=== PATIENT | female | born 1960 | race Caucasian/White ===

== ENCOUNTER 2021-12-19 12:43 | Outpatient (CLI) | payer BC, SELFPAY ==
--- OUTSIDE RECORDS SUMMARY | 2021-11-15 09:32 | XMS_ITS | Continuity of Care Document ---
:1960 Author Care Team Providers Name Role Phone LEI Rodriguez Attending Physician LEI Rodriguez Primary Care Physician Health Concerns Concerns Review chart for current health concerns Allergies, Adverse Reactions, Alerts Allergen Type Severity Reaction Last Updated Verified Status Nickel Allergy Unknown RASH October 16, Yes Active 2021 Social History Smoking Status Status Start Date End Date Date of Observat ion Never smoked tobacco September 26 9:20am (finding) Observation Status Observation Response Date of Response October 16, 2021 8:56a m Never smoker October 16, 2021 8:56a m Employed October 16, 2021 8:56a m Additional Data Assigned Sex Female Problems Active Problems Medical Problem Onset Date Status Benign hypertension April 01, 2012 Active Hyperlipidemia Active SVT (supraventricular tachycardia) Activ e Colon polyp Active COVID-2021 Active Medications Medication Status Dose Units Route Directions Qty Days Start End Ins tructions Date Date Aspirin Active 81 MG PO Daily (Low-Dose Aspirin) 81 Mg TAB Atorvastatin Active 10 MG PO Bedtime September for Calcium cholesterol 2021 8:55am Metoprolol Active 25 MG PO Daily September for SVT Tartrate 2021 8:55am Multiple Active 1 EA PO Daily Vitamins W/ Minerals (Centrum Silver) TAB Atenolol Disconti 25 MG PO Daily December 9:20am 8:58am Atenolol Disconti 25 MG PO Daily December 4:42pm 8:58am Atenolol Disconti 1 TABLET PO Daily December 4:00pm 8:03am Atenolol Disconti 25 MG PO Daily November nued 2013 8:25am 8:51am Atenolol Disconti 25 MG PO Daily September nued 2012 2:35pm 9:12am Atenolol Disconti 25 MG PO Daily October nued 2012 8:33am 8:25am Atenolol Disconti 25 MG PO Daily October 8:04am Atenolol Disconti 25 MG PO Daily July nued 2012 11:25am 2:35pm Atenolol Disconti 25 MG PO Daily July nued r 2011 9:20am 11:25a m Atorvastatin Disconti 10 MG PO Bedtime September Calcium nued 2021 4:00pm 8:55am Atorvastatin Disconti 10 MG PO Bedtime September Calcium nued , 2020 8:03am 4:00pm Atorvastatin Disconti 10 MG PO Bedtime August Calcium nued , 2020 11:26am 8:03am Atorvastatin Disconti 10 MG PO Bedtime August Calcium nued , 2019 8:32am 11:26a m Atorvastatin Disconti 10 MG PO Bedtime October Calcium nued 2017 8:33am 8:32am Atorvastatin Disconti 10 MG PO Bedtime May Calcium nued , 2019 9:18am 8:32am Atorvastatin Disconti 10 MG PO Bedtime February Calcium nued , 2017, 8:29am 2019 9:18am Atorvastatin Disconti 10 MG PO Bedtime December Calcium nued , 2016 3:47pm 8:33am Azithromycin Disconti 250-5 MG PO Daily 30 May Octobe 5 00 mg x 1 nued , day then 250 2017, mg daily x 4 11:57am 2018 days 8:05am Ciprofloxacin Disconti 500 MG PO Twice A Day 05 January Au ronan Hcl nued 2015 4:45pm 8:58am Metoprolol Disconti 25 MG PO Daily September Tartrate nued , 2021 4:00pm 8:55am Metoprolol Disconti 25 MG PO Daily September Tartrate nued , 2020 8:03am 4:00pm Metoprolol Disconti 25 MG PO Daily August Tartrate nued 2020 11:26am 8:03am Metoprolol Disconti 25 MG PO Daily November Tartrate nued , 2019 1:55pm 11:26a m Metoprolol Disconti 25 MG PO Daily August Tartrate nued 2019 12:45pm 1:55pm Metoprolol Disconti 25 MG PO Daily August Tartrate nued 2019 8:32am 12:45p m Metoprolol Disconti 25 MG PO Daily February Tartrate nued 2017 11:20am 8:32am Metoprolol Disconti 25 MG PO Daily May Tartrate nued 2019 9:18am 8:32am Metoprolol Disconti 25 MG PO Daily February Tartrate nued 2017, 8:29am 2019 9:18am Metoprolol Disconti 25 MG PO Daily December Tartrate nued , r 2016 8:33am 11:20a m Metoprolol Disconti 25 MG PO Daily Decemberr Tartrate nued , y 2016 8:58am 11:05a m Prednisone Disconti 40 MG PO Daily 10 29 May Octobe nu, r 2017, 11:57am 2017 8:05am Tetanus-Dipht Disconti 0.5 ML IM Once December heria Toxoids nued , (Td (Tenivac) 2016 2016 1 Ml INJ 8:22am 9:20am Immunizations Immunization Event Date Not Given Dose Equipment Service Associate Lot Vac cine Reason Number Number Informatio n Statement (VIS) Deta il Influenza February 222011 Influenza February 232016 Tetanus/Diptheri December 23 MASS BIOLO [id number] a 2016 Tdap September 22 (adolescent/adul 2007 t) Procedures Procedure Date Performed Status ASSAY THYROID STIM HORMONE October 16, 2021 completed LIPID PANEL October 16, 2021 completed COMPREHEN METABOLIC PANEL October 16, 2021 completed Relevant Diagnostic Tests and/or Laboratory Data Laboratory Results Test Date/Time Result Interpretation Reference Result Comment Performing Site Range Random October 16, 87 60-115 [facility] Glucose 2021 [address] [facility] 8:32am [place] [address] Blood Urea October 16, 17 7-30 [facility] Nitrogen 2021 [address] [facility] 8:32am [place] [address] Creatinine October 16, 0.6 0.5-1.5 [facility] 2021 [address] [facility] 8:32am [place] [address] Estimated October 16, Patient [facility] Creatinine 2021 height/weight [address] [facility] Clearance 8:32am [place] [address] available Sodium Level October 16, 137 135-149 [facility] 2021 [address] [facility] 8:32am [facility] [address] Potassium October 16, 4.5 3.6-5.1 [facility] Level 2021 [address] [facility] 8:32am [facility] [address] Chloride October 16, 96 96-114 [facility] Level 2021 [address] [facility] 8:32am [facility] [address] Carbon October 16, 29 20-32 [facility] Dioxide 2021 [address] [facility] Level 8:32am [facility] [address] Calcium October 16, 9.6 8.4-10.6 [facility] Level 2021 [address] [facility] 8:32am [facility] [address] Cholesterol October 16, 189 90-199 [facility] Level 2021 [address] [facility] 8:32am [facility] [address] Triglyceride October 16, 138 40-149 [facility] s Level 2021 [address] [facility] 8:32am [facility] [address] Total October 16, 7.1 6.0-8.3 The use of [facility] Protein 2021 Eltrombopag, a [address] [facility] 8:32am bone [place] [address] stimulant used to treat thrombocytopen ia and aplastic anemia, interferes with this measurement of total protein. A 5% bias has been observed. Albumin October 16, 4.7 3.3-5.0 [facility] 2021 [address] [facility] 8:32am [facility] [address] Total October 16, 0.7 0.1-1.5 [facility] Bilirubin 2021 [address] [facility] 8:32am [facility] Aspartate October 16, 27 12-35 [facility] Amino Transf 2021 1999 No [facility] (AST/SGOT) 8:32am [facility] [address] Alanine October 16, 21 4-35 [facility] Aminotransfe 2021 1999 [facility] rase 8:32am [facility] [address] (ALT/SGPT) Alkaline October 16, 75 40-150 [facility] Phosphatase 2021 [address] [facility] 8:32am [facility] [address] LDL October 16, 105 <100 [facility] Cholesterol 2021 [address] [facility] 8:32am [facility] [address] HDL October 16, 56 >=50 [facility] Cholesterol 2021 [address] [facility] 8:32am [facility] [address] Thyroid October 16, 2.330 0.270-4.20 [facility] Stimulating 2021 0 [address] [facility] Hormone 8:32am [facility] [address] (TSH) White Blood October 16, 5.7 4.5-11.0 [facility] Count [address] 8:40am [facility] [address] Red Blood October 16, 4.96 4.00-5.20 [facility] Count 2021 [address] 8:40am [facility] [address] Hemoglobin October 16, 14.5 12.0-16.0 [facility] [address] 8:40am [facility] [address] Hematocrit October 16, 42.9 33-51 [facility] [address] 8:40am [facility] [address] Mean October 16, 87 80-100 [facility] Corpuscular [address] Volume 8:40am [facility] [address] Mean October 16, 29 26-34 [facility] Corpuscular [address] Hemoglobin 8:40am [facility] [address] Mean October 16, 34 32-36 [facility] Corpuscular [address] Hemoglobin 8:40am [facility] [address] Concent Platelet October 16, 217 140-440 [facility] Count 2021 [address] [facility] 8:40am [place] [address] Neutrophils October 16, 67.1 42-72 [facility] (%) (Auto) [address] 8:40am [facility] [address] Lymphocytes October 16, 24.8 20-44 [facility] (%) (Auto) [address] [place] [address] West 8:40am [facility] [address] Monocytes October 16, 6.5 0-11 [facility] (%) (Auto) [address] 8:40am [facility] [address] Eosinophils October 16, 1.2 0-7 [facility] (%) (Auto) [address] [place] [address] West 8:40am [facility] [address] Basophils October 16, 0.4 0.0-3.0 [facility] (%) (Auto) [address] [place] [address] West 8:40am [facility] [address] Neutrophils October 16, 3.8 1.7-7.0 [facility] # (Auto) [address] [facility] [address] [place] 8:40am [facility] [address] Lymphocytes October 16, 1.4 0.9-2.9 [facility] # (Auto) [address] [place] [address] 8:40am [facility] [address] Monocytes # October 16, 0.4 0.0-0.9 [facility] (Auto) 202174 [address] [place] [address] 8:40am [facility] [address] Eosinophils October 16, 0.1 0.0-0.5 [facility] # (Auto) [address] [place] [address] West 8:40am [facility] [address] Basophils # October 16, 0.0 0.0-0.3 [facility] (Auto) [address] [place] [address] 8:40am [facility] [address] Vital Signs Vital Reading Result Reference Range Collection Date/ Time Height 65 [in_i] October 16, 2021 8 :23am Height 165.1 cm October 16, 2021 8 :23am Weight 143.00 [lb_av] October 16, 2021 8 :23am Weight 65.25257 kg October 16, 2021 8 :23am Body Temperature 96.9 [degF] October 16, 2021 8:23am Body Temperature 36.06 Monica October 16, 2021 8:23am BP Systolic 120 mm[Hg] October 16, 2021 8 :23am BP Diastolic 78 mm[Hg] October 16, 2021 8 :23am Heart Rate 67 /min October 16, 2021 8 :23am Respiratory rate 16 /min October 16, 2021 8:23am Body surface area 1.72 m2 October 16, 2021 8:23am BMI (Body Mass Index) 23.9 kg/m2 October 16, 2021 8:23am Advance Directives Advance Directive Response Recorded Date/Time Has patient completed a No October 16, 2021 8 :54am Health Care Directive? Insurance Providers Guarantor Anahi Garcia Address [address] [place] [id number] Contact Info. Home Phone: Payer Policy Id Coverage Id Subscriber's Subscriber Id Effective E xpiration Name Date Date [place] [id number] Claudy Garcia [place] [address] Encounters Encounter Location(s) Arrival/Admit Date Discharge/Depart Date Provider(s) Registered [place] October 16, 2021 Desi Rodriguez [facility] 8:39am Jermaine ODOM Registered Clinics October 16, 2021 [facility] 8:15am Jermaine ODOM Office Visit [facility] October 16, 2021 [facility] 8:15am Jermaine ODOM Recent Diagnosis Onset Date Preventative health care COVID-19 Never smoker Employed Assessments 1. Physical exam. Patient's blood pressure is 120/78. BMI 23.9. Patient has lost weight compared to last year. She did do noom for a while, and has been more closely pain attention to her diet. She does acknowledge she does eat a lot of sugar still.-Labs reviewed from last year physical( 09/03/2020). CBC, CMP unremarkable. LDL 87, HDL 87, total cholesterol 175, triglycerides 165. -Will obtain year cbc for anemia and blood count screening, lipid panel for dyslipidemia screening, cmp to eval fasting glucose for diabetes and liver function -Last Pap smear was 09/26/2020- normal and negative for HPV -Last mammogram 10/24/20. She is due for mammogram. Patient will get scheduled to the breast center-Last colonoscopy completed 04/24/2020. Due again in 5 years, 04/2025.Continue with annual follow-up, sooner if new concerns arise. I also recommend that she keep an eye on her weight, this to make sure that she does not continue to trend downward unintentionally at all. Reminded to get her mammogram set up 2. SVT. Continue on current metoprolol 25 mg daily. 3. Hyperlipidemia. Continue on atorvastatin 10 mg daily. Provided refills. 4. Left shoulder pain. Patient did not complain, and denied joint pain with review of systems. However during her exam, noted that she seemed to have some discomfort with raising her left arm above her head with breast exam.Patient is a physical therapist. Notes that appear head suggested she had impingement syndrome.She is aware of certain exercises and stretches that would be beneficial. Plan of Treatment Instructions from visit on: 10/16/21 Please follow the provider's instructions as discussed during your visit. Instructions from visit on: 10/16/21 Please follow the provider's instructions as discussed during your visit. Future Tests Future scheduled test information is unavailable Pending Tests Pending diagnostic test information is unavailable Future Visits Future appointment information is unavailable Referrals to Other Providers Referral information is unavailable Future Procedures Procedure Name Scheduled Date NURIA Bilat Mammo Scrn Future Medications Future medication information is unavailable Patient Instructions Patient instructions are unavailable Goals Ambulatory Goals Reach or maintain optimal well being. Reach or maintain optimal well being.
--- NOTE | 2021-12-19 13:00 | CRLHL7_ITS ---
For Patients: As a result of the Century Cures Act, medical imaging exams and procedure reports are released immediately into your electronic medical record. You may view this report before your referring provider. If you have questions, please contact your health care provider. BILATERAL MAMMOGRAM WITH COMPUTER-AIDED DETECTION TECHNIQUE: CC and MLO views were obtained. These mammographic images have been obtained using full-field digital technique. These mammographic images were interpreted with the benefit of computer-aided detection. COMPARISON FILM: 10/24/20, 07/08/19, 04/30/18 FINDINGS: There are scattered areas of fibroglandular density IMPRESSION: There is no radiographic evidence for malignancy. ASSESSMENT: BI-RADS Category 1: Negative RECOMMENDATION: Routine screening mammogram in 1 year. A lay language report of this examination will be provided to the patient. Patti Arce M.D. Diagnostic/Breast Radiologist [email or web address] REAL/Dictated by: Patti Arce MD @ 12/20/2021 4:40:00 PM (Electronically Signed)
== END 2021-12-19 12:44 | disposition home or self-care (01) ==
LOC: MAMMO 12:44
PROVIDERS: PCP Physician Assistant Medical; Visit Provider Physician Assistant Medical
DX: Z12.31 Encounter for screening mammogram for malignant neoplasm of breast (principal)
CPT/HCPCS: 77063; 77067

== ENCOUNTER 2022-12-17 09:07 | Outpatient (CLI) | payer BC, SELFPAY | END 2022-12-17 09:08 | disposition home or self-care (01) | LOC: NFLDREF 12-18 13:51 | PROVIDERS: PCP Physician Assistant Medical; Referring Provider Physician Assistant Medical; Visit Provider Physician Assistant Medical | DX: Z00.00 Encounter for general adult medical examination without abnormal findings (principal); E78.00 Pure hypercholesterolemia, unspecified; I47.1 Supraventricular tachycardia; I10 Essential (primary) hypertension | CPT/HCPCS: 80053; 80061; 84443 ==

== ENCOUNTER 2023-03-09 15:12 | Outpatient (CLI) | payer BC, SELFPAY ==
--- NOTE | 2023-03-09 15:20 | CRLHL7_ITS ---
For Patients: As a result of the Century Cures Act, medical imaging exams and procedure reports are released immediately into your electronic medical record. You may view this report before your referring provider. If you have questions, please contact your health care provider. BILATERAL SCREENING MAMMOGRAM WITH COMPUTER-AIDED DETECTION TECHNIQUE: CC and MLO views were obtained. These mammographic images have been obtained using full-field digital technique. These mammographic images were interpreted with the benefit of computer-aided detection. COMPARISON FILM: 12/19/21, 10/24/20, 07/08/19. FINDINGS: There are scattered areas of fibroglandular density IMPRESSION: There is no radiographic evidence for malignancy. ASSESSMENT: BI-RADS Category 1: Negative RECOMMENDATION: Routine screening mammogram in 1 year. A lay language report of this examination will be provided to the patient. MARYELLEN GILMORE M.D. Diagnostic/Nuclear Medicine Radiologist [email or web address] AARON:[email or web address] Transcribed: 2:05 p.mJagdish gu/Dictated by: Maryellen Gilmore MD @ 03/10/2023 9:18:00 AM (Electronically Signed)
== END 2023-03-09 15:13 | disposition home or self-care (01) ==
PROVIDERS: PCP Physician Assistant Medical; Visit Provider Physician Assistant Medical
DX: Z12.31 Encounter for screening mammogram for malignant neoplasm of breast (principal)
CPT/HCPCS: 77063; 77067